=== PATIENT | female | born 1940 | race Caucasian/White ===

== ENCOUNTER 2016-07-23 09:02 | Emergency (ER) | payer MEDICARE, MEDICAID ==
[2016-07-23 09:07] VITALS: BMI 25.6
[2016-07-23 09:08] VITALS: RESP 18; TEMP 97.6; O2SAT 98
--- NOTE | 2016-07-23 09:15 | C.PDOC ---
History Of Present Illness 75F c/o right knee pain after a fall 5 days ago. she has taken both naproxen and tramadol at home with some relief. came today bc pain is persistent. Time Seen by Provider: 07/23/16 09:09 Chief Complaint (Nursing): Lower Extremity Problem/Injury Past Medical History Vital Signs: Last Vital Signs Temp 97.6 F 07/23/16 09:07 Pulse 83 07/23/16 09:07 Resp 18 07/23/16 09:07 BP 108/67 07/23/16 09:07 Pulse Ox 98 07/23/16 10:15 Surgical History: Denies: Pacemaker - [facility] Procedures CORONAR ARTERIOGR-2 CATH (06/30/14) LEFT HEART CARDIAC CATH (06/30/14) LT HEART ANGIOCARDIOGRAM (06/30/14) Family History: States: Other Other Family History: nc - Social History Hx Alcohol Use: No Hx Substance Use: No Review Of Systems Constitutional: Negative for: Fever, Chills, Weakness Musculoskeletal: Positive for: Back Pain (chronic), Leg Pain (knee). Negative for: Neck Pain Neurological: Negative for: Weakness, Numbness, Headache Physical Exam - Physical Exam Appears: Well, Non-toxic, No Acute Distress Respiratory: No Accessory Muscle Use Extremity: Normal ROM, Tenderness (right patella), No Deformity, No Swelling, Other (nl rom, strength, sensation in right lower extremity) Neurological/Psych: Oriented x3, Normal Motor, Normal Sensation Gait: Steady ED Course And Treatment O2 Sat by Pulse Oximetry: 98 - Other Rad Right Knee X-ray X-Ray: Viewed By Me, Read By Radiologist Interpretation: PROCEDURE: Right Knee Radiographs. HISTORY: fall pain. COMPARISON: None. FINDINGS: BONES: No evidence of acute displaced fracture nor dislocation. JOINTS: Joint space is relatively preserved. No significant degenerative osteoarthritis however there is a small anterior superior patella enthesophyte. JOINT EFFUSION: None. OTHER FINDINGS: None. IMPRESSION: No evidence of acute displaced fracture nor dislocation. Small anterior superior patella enthesophyte Disposition - Disposition Disposition: HOME/ ROUTINE Disposition Time: 10:15 Condition: STABLE - Clinical Impression Clinical Impression: Knee contusion - Scribe Statement The provider has reviewed the documentation as recorded by the Scribe Efra Ivey All medical record entries made by the Scribe were at my direction and personally dictated by me. I have reviewed the chart and agree that the record accurately reflects my personal performance of the history, physical exam, medical decision making, and the department course for this patient. I have also personally directed, reviewed, and agree with the discharge instructions and disposition.
--- NOTE | 2016-07-23 10:07 | RAD ---
PROCEDURE: Right Knee Radiographs. HISTORY: fall pain COMPARISON: None. FINDINGS: BONES: No evidence of acute displaced fracture nor dislocation JOINTS: Joint space is relatively preserved. No significant degenerative osteoarthritis however there is a small anterior superior patella enthesophyte JOINT EFFUSION: None. OTHER FINDINGS: None. IMPRESSION: No evidence of acute displaced fracture nor dislocation. Small anterior superior patella enthesophyte
[2016-07-23 10:30] VITALS: BP 110/69; PULSE 78
== END 2016-07-23 10:31 | disposition home or self-care (01) ==
LOC: C.ER 09:02
DX: S80.01XA Contusion of right knee, initial encounter (principal); W19.XXXA Unspecified fall, initial encounter; Y93.9 Activity, unspecified; Y92.9 Unspecified place or not applicable